=== PATIENT | female | born 1985 | race Hispanic/Latino ===

== ENCOUNTER 2018-08-19 06:33 | Inpatient (IN) | payer MEDICARE | END 2018-08-27 18:37 | disposition home or self-care (01) | LOC: EDH 06:33 → 2DH 08-20 00:02 → 3DH 08-21 20:48 → EDHIP 09:18 | DX: E11.10 Type 2 diabetes mellitus with ketoacidosis without coma (principal); E87.1 Hypo-osmolality and hyponatremia; K92.0 Hematemesis; R10.84 Generalized abdominal pain; E87.6 Hypokalemia; E86.1 Hypovolemia; F17.200 Nicotine dependence, unspecified, uncomplicated; E87.8 Other disorders of electrolyte and fluid balance, not elsewhere classified; E66.9 Obesity, unspecified; E83.39 Other disorders of phosphorus metabolism ==

== ENCOUNTER 2019-08-17 00:13 | Emergency (ER) | payer MEDICARE ==
[~2019-08-17 00:13] MED LIST: CARAL PO; FLUC100T PO; INSU3INS3 SQ; METF-446 PO; PANT40TA PO; TYL3 PO
[2019-08-17] MEDS ORDERED: SODIUM CHLORIDE 0.9% 1000ML 1,000 ML IV ONE ×2 (00:17→03:52)
[2019-08-17] MEDS ORDERED: ONDANSETRON HCL 4 MG/2 ML VIAL ONE ×2 (00:22→05:24)
[2019-08-17] MEDS ORDERED: FAMOTIDINE/PF 20 MG/2 ML VIAL IV ONE (00:33)
[2019-08-17 00:49] LABS: ABG OXYGEN SATURATION 92.1 % (95.0-99.0); HCO3,VENOUS BLOOD GAS 21.8 (21.0-28.0); PCO2,VENOUS BLOOD GAS 32 (32-45); PH,VENOUS BLOOD GAS 7.459 (7.350-7.450)
[2019-08-17] MEDS ORDERED: DiphenhydrAMINE HCL 50 MG/ML VIAL ONE ×2 (00:53→05:24)
[2019-08-17] MEDS ORDERED: METOCLOPRAMIDE 10 MG/2 ML VIAL ONE (00:53)
[2019-08-17 01:14] LABS: BASOPHILS % (AUTO) 0.3 % (0.0-5.0); HEMATOCRIT 40.5 % (36-48); LYMPHOCYTES % (AUTO) 4.1 % (21.0-51.0); MEAN CORPUSCULAR HEMOGLOBIN 27.4 pg (27.0-33.0); MEAN CORPUSCULAR HGB CONC 33.6 g/dL (32.0-36.0); MEAN CORPUSCULAR VOLUME 81.5 fL (79-99); MONOCYTES % (AUTO) 2.7 % (3.0-13.0); NEUTROPHILS % (AUTO) 92.5 % (40.0-77.0); PLATELET COUNT (AUTO) 346 K/uL (130-400); RED BLOOD CELL COUNT(AUTO) 4.97 MIL/uL (4.00-5.50); RED CELL DISTRIBUTION WIDTH 12.4 % (11.0-15.5); WHITE BLOOD COUNT (AUTO) 15.6 K/uL (4.8-10.8)
[2019-08-17 01:25] LABS: CREATININE 0.8 mg/dL (0.5-1.5); POTASSIUM 3.5 mmol/L (3.5-5.1)
[2019-08-17 01:26] LABS: MAGNESIUM 1.5 mg/dL (1.80-2.40)
[2019-08-17 01:31] LABS: INR 0.96 (0.85-1.15); PARTIAL THROMBOPLASTIN TIME 19.8 SEC (26.3-35.5); PROTHROMBIN TIME 10.1 SEC (9.6-11.6)
[2019-08-17 01:36] LABS: ALBUMIN 4.1 g/dL (3.5-5.0); BILIRUBIN,TOTAL 0.8 mg/dL (0.2-1.0); TOTAL PROTEIN, SERUM 7.6 g/dL (6.0-8.3)
[2019-08-17 03:28] LABS: BASOPHILS % (AUTO) 0.3 % (0.0-5.0); HEMATOCRIT 37.6 % (36-48); MEAN CORPUSCULAR HEMOGLOBIN 27.2 pg (27.0-33.0); MEAN CORPUSCULAR HGB CONC 32.4 g/dL (32.0-36.0); MEAN CORPUSCULAR VOLUME 83.9 fL (79-99); MONOCYTES % (AUTO) 2.1 % (3.0-13.0); NEUTROPHILS % (AUTO) 91.1 % (40.0-77.0); PLATELET COUNT (AUTO) 162 K/uL (130-400); RED BLOOD CELL COUNT(AUTO) 4.48 MIL/uL (4.00-5.50); RED CELL DISTRIBUTION WIDTH 12.6 % (11.0-15.5); WHITE BLOOD COUNT (AUTO) 14.3 K/uL (4.8-10.8)
[2019-08-17 03:30] LABS: APPEARANCE,URINE Clear (CLEAR); BILIRUBIN,URINE Negative (NEGATIVE); COLOR,URINE Yellow (YELLOW); GLUCOSE, URINE (UA) >=1000 mg/dL (NEGATIVE); KETONES,URINE >=160 mg/dL (NEGATIVE); LEUKOCYTE ESTERASE ,URINE Negative (NEGATIVE); NITRATE,URINE Negative (NEGATIVE); OCCULT BLOOD,URINE Moderate (NEGATIVE); PROTEIN,URINE Trace mg/dL (NEGATIVE); UROBILINOGEN,URINE 0.2 mg/dL (0.2-1.0)
[2019-08-17 03:36] LABS: HCG,QUAL RESULT NEGATIVE (NEGATIVE)
[2019-08-17 03:38] LABS: AMPHET/METH SCREEN,URINE NEGATIVE (NEGATIVE); BARBITURATE SCREEN, URINE NEGATIVE (NEGATIVE); BENZODIAZEPINES SCREEN,URINE NEGATIVE (NEGATIVE); CANNABINOID SCREEN,URINE POSITIVE (NEGATIVE); COCAINE SCREEN,URINE NEGATIVE (NEGATIVE); OPIATE SCREEN,URINE NEGATIVE (NEGATIVE); PHENCYCLIDINE SCREEN,URINE NEGATIVE (NEGATIVE)
[2019-08-17 04:00] LABS: BACTERIA,URINE Few /HPF (None Seen); WBC,URINE 0-1 /HPF (0-1)
[2019-08-17 04:01] LABS: SQUAMOUS EPITHELIAL CELL,UR 0-2 /HPF (0-2)
[2019-08-17] MEDS ORDERED: LEVOFLOXACIN 500 MG TABLET ONE (06:20)
[2019-08-17] MEDS ORDERED: HYOSCYAMINE SULFATE 0.125 MG TAB.SUBL SL ONE (06:21)
== END 2019-08-17 06:30 | disposition home or self-care (01) ==
LOC: EDH 00:13
DX: E86.9 Volume depletion, unspecified (principal); R10.13 Epigastric pain; R11.2 Nausea with vomiting, unspecified; R19.7 Diarrhea, unspecified; E11.9 Type 2 diabetes mellitus without complications; F12.10 Cannabis abuse, uncomplicated; Z98.51 Tubal ligation status; Z90.49 Acquired absence of other specified parts of digestive tract
CPT/HCPCS: 36415; 36600; 74176; 80053; 80305; 81001; 81025; 82010; 82550; 82803; 82948; 83605 ×2; 83690; 83735; 85025 ×2; 85610; 85730; 93005; 96361; 96374; 96375; 96376; 99285; J1200 ×2; J2405 ×2; J2765; J3490; J7030 ×2

== ENCOUNTER 2019-08-19 09:06 | Emergency (ER) | payer MEDICARE ==
[2019-08-19 09:43] LABS: BASOPHILS % (AUTO) 0.6 % (0.0-5.0); EOSINOPHILS % (AUTO) 0.6 % (0.0-8.0); HEMATOCRIT 38.6 % (36-48); LYMPHOCYTES % (AUTO) 11.3 % (21.0-51.0); MEAN CORPUSCULAR HEMOGLOBIN 27.1 pg (27.0-33.0); MEAN CORPUSCULAR HGB CONC 33.2 g/dL (32.0-36.0); MEAN CORPUSCULAR VOLUME 81.6 fL (79-99); MONOCYTES % (AUTO) 6.5 % (3.0-13.0); NEUTROPHILS % (AUTO) 80.6 % (40.0-77.0); PLATELET COUNT (AUTO) 355 K/uL (130-400); RED BLOOD CELL COUNT(AUTO) 4.73 MIL/uL (4.00-5.50); RED CELL DISTRIBUTION WIDTH 12.5 % (11.0-15.5); WHITE BLOOD COUNT (AUTO) 12.5 K/uL (4.8-10.8)
[2019-08-19 09:43] LABS: APPEARANCE,URINE Clear (CLEAR); BILIRUBIN,URINE Negative (NEGATIVE); COLOR,URINE Yellow (YELLOW); GLUCOSE, URINE (UA) >=1000 mg/dL (NEGATIVE); KETONES,URINE Trace mg/dL (NEGATIVE); LEUKOCYTE ESTERASE ,URINE Negative (NEGATIVE); NITRATE,URINE Negative (NEGATIVE); OCCULT BLOOD,URINE Large (NEGATIVE); PROTEIN,URINE Negative (NEGATIVE); UROBILINOGEN,URINE 0.2 mg/dL (0.2-1.0)
[2019-08-19 09:47] LABS: AMPHET/METH SCREEN,URINE NEGATIVE (NEGATIVE); BARBITURATE SCREEN, URINE NEGATIVE (NEGATIVE); BENZODIAZEPINES SCREEN,URINE POSITIVE (NEGATIVE); CANNABINOID SCREEN,URINE POSITIVE (NEGATIVE); COCAINE SCREEN,URINE NEGATIVE (NEGATIVE); OPIATE SCREEN,URINE NEGATIVE (NEGATIVE); PHENCYCLIDINE SCREEN,URINE NEGATIVE (NEGATIVE)
[2019-08-19 09:56] LABS: CREATININE 0.6 mg/dL (0.5-1.5); POTASSIUM 3.4 mmol/L (3.5-5.1)
[2019-08-19 09:57] LABS: BACTERIA,URINE Rare /HPF (None Seen); SQUAMOUS EPITHELIAL CELL,UR Rare /HPF (0-2); WBC,URINE 0-1 /HPF (0-1)
[2019-08-19] MEDS ORDERED: METOCLOPRAMIDE 10 MG/2 ML VIAL ONE (09:58)
[2019-08-19] MEDS ORDERED: DiphenhydrAMINE HCL 50 MG/ML VIAL ONE (09:58)
[2019-08-19] MEDS ORDERED: ONDANSETRON HCL 4 MG/2 ML VIAL ONE (09:59)
[2019-08-19] MEDS ORDERED: SODIUM CHLORIDE 0.9% 1000ML 1,000 ML IV ONE (10:00)
[2019-08-19 10:01] LABS: ALBUMIN 3.6 g/dL (3.5-5.0); BILIRUBIN,TOTAL 0.4 mg/dL (0.2-1.0); TOTAL PROTEIN, SERUM 6.7 g/dL (6.0-8.3)
== END 2019-08-19 13:09 | disposition home or self-care (01) ==
LOC: EDH 09:06
DX: K29.70 Gastritis, unspecified, without bleeding (principal); K31.84 Gastroparesis; F41.9 Anxiety disorder, unspecified; F12.188 Cannabis abuse with other cannabis-induced disorder; R10.9 Unspecified abdominal pain; E11.9 Type 2 diabetes mellitus without complications; Z98.890 Other specified postprocedural states; Z90.49 Acquired absence of other specified parts of digestive tract
CPT/HCPCS: 36415; 80053; 80305; 81001; 82150; 83690; 85025; 96361; 96374; 96375; 99284; J1200; J2405; J2765; J7030

== ENCOUNTER 2019-08-23 16:53 | Inpatient (IN) | payer MEDICARE ==
[~2019-08-23] VITALS: Ht 180.3 cm; Wt 59.9 kg
[2019-08-23] MEDS ORDERED: ONDANSETRON HCL 4 MG/2 ML VIAL ONE ×3 (17:23→22:18)
[2019-08-23] MEDS ORDERED: SODIUM CHLORIDE 0.9% 1000ML 1,000 ML IV ONE ×2 (17:23→21:26)
[2019-08-23] MEDS ORDERED: HALOPERIDOL LACTATE 5 MG/ML VIAL ONE ×2 (17:23→19:15)
[2019-08-23 17:31] LABS: BASOPHILS % (AUTO) 0.5 % (0.0-5.0); EOSINOPHILS % (AUTO) 0.5 % (0.0-8.0); HEMATOCRIT 42.4 % (36-48); LYMPHOCYTES % (AUTO) 10.2 % (21.0-51.0); MEAN CORPUSCULAR HEMOGLOBIN 26.8 pg (27.0-33.0); MEAN CORPUSCULAR HGB CONC 32.8 g/dL (32.0-36.0); MEAN CORPUSCULAR VOLUME 81.9 fL (79-99); MONOCYTES % (AUTO) 8.3 % (3.0-13.0); NEUTROPHILS % (AUTO) 80.2 % (40.0-77.0); PLATELET COUNT (AUTO) 373 K/uL (130-400); RED BLOOD CELL COUNT(AUTO) 5.18 MIL/uL (4.00-5.50); RED CELL DISTRIBUTION WIDTH 12.6 % (11.0-15.5)
[2019-08-23 17:52] LABS: CREATININE 0.6 mg/dL (0.5-1.5); POTASSIUM 3.3 mmol/L (3.5-5.1)
[2019-08-23 17:56] LABS: ALBUMIN 3.8 g/dL (3.5-5.0); BILIRUBIN,DIRECT 0.2 mg/dL (0.0-0.3); BILIRUBIN,TOTAL 1.3 mg/dL (0.2-1.0); TOTAL PROTEIN, SERUM 7.3 g/dL (6.0-8.3)
[2019-08-23] MEDS ORDERED: METOCLOPRAMIDE 10 MG/2 ML VIAL ONE ×2 (18:00→22:18)
[2019-08-23 21:24] LABS: APPEARANCE,URINE CLOUDY (CLEAR); BILIRUBIN,URINE NEGATIVE (NEGATIVE); COLOR,URINE RED (YELLOW); GLUCOSE, URINE (UA) 500 mg/dL (NEGATIVE); HCG,QUAL RESULT NEGATIVE (NEGATIVE); KETONES,URINE >=80 mg/dL (NEGATIVE); LEUKOCYTE ESTERASE ,URINE NEGATIVE (NEGATIVE); NITRATE,URINE NEGATIVE (NEGATIVE); OCCULT BLOOD,URINE LARGE (NEGATIVE); PROTEIN,URINE 100 mg/dL (NEGATIVE); UROBILINOGEN,URINE 0.2 mg/dL (0.2-1.0)
[2019-08-23] MEDS ORDERED: KETOROLAC TROMETHAMINE 30MG/ML ONE (21:24)
[2019-08-23 21:30] LABS: AMPHET/METH SCREEN,URINE POSITIVE (NEGATIVE); BARBITURATE SCREEN, URINE NEGATIVE (NEGATIVE); BENZODIAZEPINES SCREEN,URINE POSITIVE (NEGATIVE); CANNABINOID SCREEN,URINE POSITIVE (NEGATIVE); COCAINE SCREEN,URINE POSITIVE (NEGATIVE); OPIATE SCREEN,URINE NEGATIVE (NEGATIVE); PHENCYCLIDINE SCREEN,URINE NEGATIVE (NEGATIVE)
[2019-08-23 21:39] LABS: BACTERIA,URINE Moderate /HPF (None Seen); MUCUS,URINE Few LPF (None Seen); RBC,URINE 26-50 /HPF (0-1); SQUAMOUS EPITHELIAL CELL,UR Few /HPF (0-2)
[2019-08-23] MEDS ORDERED: LIDOCAINE HCL-MPF 1% 2ML VIAL IJ PRN ×2 (21:45→22:45)
[2019-08-23] MEDS ORDERED: POTASSIUM CHLORIDE 20MEQ/100ML 100 ML IV PRN ×2 (21:45→22:45)
[2019-08-23] MEDS ORDERED: GLUCAGON 1MG KIT 1 MG ML IM PRN (21:45)
[2019-08-23] MEDS ORDERED: MAGNESIUM 2GM PREMIX 50ML 50 ML IV PRN (21:45)
[2019-08-23] MEDS: INSULIN HUMULIN R 100 UNIT/ML 3ML SQ SCH (21:45)
[2019-08-23] MEDS ORDERED: POTASSIUM CHLORIDE 10% ELIXIR 20 MEQ/15 ML UDCUP PO PRN (21:45)
[2019-08-23] MEDS: SODIUM CHLORIDE 0.9% 1000ML 1,000 ML IV SCH (21:45)
[2019-08-23] MEDS ORDERED: DEXTROSE 50%-WATER 50 ML DISP.SYRIN IV PRN (21:45)
[2019-08-23] MEDS ORDERED: POTASSIUM CHLORIDE 20 MEQ ERTAB PO PRN (21:45)
[2019-08-23 22:13] LABS: HEMOGLOBIN A1C 10.7 % (4.0-6.0)
[2019-08-23] MEDS ORDERED: METOCLOPRAMIDE 10 MG/2 ML VIAL IVP SCH (22:15)
[2019-08-23] MEDS ORDERED: NITROGLYCERIN 0.4 MG SL TAB SL PRN (22:15)
[2019-08-23] MEDS ORDERED: ACETAMINOPHEN 325 MG TAB PO PRN ×2 (22:15)
[2019-08-23] MEDS: DiphenhydrAMINE HCL 50 MG/ML VIAL IV SCH (22:15)
[2019-08-23] MEDS ORDERED: DiphenhydrAMINE HCL 50 MG/ML VIAL ONE (22:18)
[2019-08-23] MEDS ORDERED: SODIUM CHLORIDE 0.9% 50 ML IV ONE (22:19)
[2019-08-23] MEDS ORDERED: MAGNESIUM 2GM PREMIX 50ML 50 ML IV SCH (22:45)
[2019-08-23 22:51] LABS: MYOGLOBIN 83 ng/mL (10-92); TROPONIN I < 0.04 ng/mL (0.00-0.06)
[2019-08-23] MEDS ORDERED: MAGNESIUM 2GM PREMIX 50ML 50 ML IV ONE (22:58)
[2019-08-24] MEDS: SODIUM CHLORIDE 0.9% 1000ML 1,000 ML IV SCH ×3 (04:25→14:48)
[2019-08-24] MEDS ORDERED: SODIUM CHLORIDE 0.9% 1000ML 1,000 ML IV ONE (04:33)
[2019-08-24] MEDS ORDERED: HALOPERIDOL LACTATE 5 MG/ML VIAL ONE (04:36)
[2019-08-24] MEDS ORDERED: ONDANSETRON HCL 4 MG/2 ML VIAL ONE (04:36)
[2019-08-24] MEDS ORDERED: HALOPERIDOL LACTATE 5 MG/ML VIAL IV ONE (04:45)
[2019-08-24] MEDS ORDERED: KETOROLAC TROMETHAMINE 15MG/ML IV PRN (04:45)
[2019-08-24] MEDS: INSULIN HUMULIN R 100 UNIT/ML 3ML SQ SCH ×4 (07:30→21:45)
[2019-08-24 08:00] VITALS: BP 95/65
[2019-08-24] MEDS ORDERED: FAMOTIDINE/PF 20 MG/2 ML VIAL IV SCH (09:00)
[2019-08-24] MEDS ORDERED: FAMOTIDINE 20MG TAB 20 MG TAB PO SCH (09:00)
[2019-08-24 09:37] LABS: BASOPHILS % (AUTO) 0.2 % (0.0-5.0); HEMATOCRIT 39.9 % (36-48); LYMPHOCYTES % (AUTO) 10.7 % (21.0-51.0); MEAN CORPUSCULAR HEMOGLOBIN 27.3 pg (27.0-33.0); MEAN CORPUSCULAR HGB CONC 33.3 g/dL (32.0-36.0); MEAN CORPUSCULAR VOLUME 81.8 fL (79-99); MONOCYTES % (AUTO) 7.9 % (3.0-13.0); PLATELET COUNT (AUTO) 335 K/uL (130-400); RED BLOOD CELL COUNT(AUTO) 4.88 MIL/uL (4.00-5.50); RED CELL DISTRIBUTION WIDTH 12.7 % (11.0-15.5); WHITE BLOOD COUNT (AUTO) 9.2 K/uL (4.8-10.8)
[2019-08-24 09:50] LABS: ALBUMIN 3.4 g/dL (3.5-5.0); BILIRUBIN,TOTAL 0.7 mg/dL (0.2-1.0); CREATININE 0.6 mg/dL (0.5-1.5); MAGNESIUM 1.8 mg/dL (1.80-2.40); POTASSIUM 3.3 mmol/L (3.5-5.1); TOTAL PROTEIN, SERUM 6.6 g/dL (6.0-8.3)
--- NOTE | 2019-08-24 10:00 | NUR ---
DR MOHR IN TO SEE Patient orders for endocrinology, ordered place for dr melendrez
[2019-08-24] MEDS: ENOXAPARIN SODIUM 30 MG/0.3 ML SQ SCH (10:27)
[2019-08-24 12:00] VITALS: BP 110/76
--- NOTE | 2019-08-24 12:05 | NUR ---
new consult for endocrinology , DR MONROE NOTIFIED RETURN CALL AND ORDERS RECEIVED FOR BLOOD SUGAR EVERY 4 HOURS, LANTUS 15 UNITS NOW . HE WILL BE IN TO SEE PATIENT TODAY KEEP NPO FOR NOW
[2019-08-24] MEDS ORDERED: INSULIN GLARGINE 100 UNITS/ML 10 ML VIAL SQ ONE (12:15)
[2019-08-24] MEDS: NS-20 MEQ KCL 1000ML 1,000 ML IV SCH (14:45)
[2019-08-24 16:00] VITALS: BP 123/71
[2019-08-24] MEDS: METOCLOPRAMIDE 5 MG TABLET PO SCH (17:28)
--- NOTE | 2019-08-24 17:33 | NUR ---
INITIAL Patient reports that she is homeless and has been staying at [facility], [facility]. Emergency contact is mother, Geneva Del Toro [phone]. Patient has no home services or DME. 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 No PCP and no pharmacy of choice. Patient is independent and able to complete ADL's independently. DCP is back to [facility]. Patient informed SW that she used to live with her 3 yr old son and 5 yr old daughter but Child Protective Services removed children from her custody on 08/19/2019. Patient reports that her daughter is with her mother and her son has been placed with her cousin. CPS Perinatal Social Worker is Monica Hernandez, [phone]. SW attempted to contact Ms. Hernandez but was only able to leave a message. SW will continue to follow up with patient. Addendum: 08/24/19 at 1740 by ALVERTO WALLER SS Amended: Links added.
[2019-08-24 20:00] VITALS: BP 117/83
[2019-08-24 20:21] LABS: CREATININE 0.7 mg/dL (0.5-1.5); POTASSIUM 3.3 mmol/L (3.5-5.1)
[2019-08-24] MEDS ORDERED: POTASSIUM CHLORIDE 20 MEQ ERTAB PO PRN (21:30)
[2019-08-24] MEDS ORDERED: POTASSIUM CHLORIDE 20MEQ/100ML 100 ML IV PRN (21:30)
[2019-08-24] MEDS ORDERED: ALPRAZOLAM 1 MG TAB ONE (21:32)
[2019-08-24] MEDS: INSULIN GLARGINE 100 UNITS/ML 10 ML VIAL SQ SCH (21:58)
[2019-08-24] MEDS: DiphenhydrAMINE HCL 50 MG/ML VIAL IV SCH (22:15)
[2019-08-24] MEDS ORDERED: KETOROLAC TROMETHAMINE 15MG/ML IM PRN (22:45)
[2019-08-24] MEDS ORDERED: KETOROLAC TROMETHAMINE 30MG/ML ONE (22:50)
[2019-08-25] VITALS: BP 104/73
[2019-08-25] MEDS ORDERED: ALPRAZOLAM 1 MG TAB PO ONE
[2019-08-25] MEDS: SODIUM CHLORIDE 0.9% 1000ML 1,000 ML IV SCH (00:25)
[2019-08-25] MEDS: NS-20 MEQ KCL 1000ML 1,000 ML IV SCH ×3 (00:26→22:00)
[2019-08-25 04:00] VITALS: BP 96/69
[2019-08-25] MEDS: INSULIN HUMULIN R 100 UNIT/ML 3ML SQ SCH ×4 (06:55→21:00)
[2019-08-25 07:05] LABS: BASOPHILS % (AUTO) 0.8 % (0.0-5.0); EOSINOPHILS % (AUTO) 1.8 % (0.0-8.0); HEMATOCRIT 40.2 % (36-48); LYMPHOCYTES % (AUTO) 33.7 % (21.0-51.0); MEAN CORPUSCULAR HEMOGLOBIN 27.3 pg (27.0-33.0); MEAN CORPUSCULAR HGB CONC 32.3 g/dL (32.0-36.0); MEAN CORPUSCULAR VOLUME 84.5 fL (79-99); MONOCYTES % (AUTO) 13.5 % (3.0-13.0); NEUTROPHILS % (AUTO) 49.9 % (40.0-77.0); PLATELET COUNT (AUTO) 329 K/uL (130-400); RED BLOOD CELL COUNT(AUTO) 4.76 MIL/uL (4.00-5.50); RED CELL DISTRIBUTION WIDTH 13.1 % (11.0-15.5); WHITE BLOOD COUNT (AUTO) 6.5 K/uL (4.8-10.8)
[2019-08-25 07:14] LABS: CREATININE 0.8 mg/dL (0.5-1.5); MAGNESIUM 2.3 mg/dL (1.80-2.40)
[2019-08-25 07:19] LABS: POTASSIUM 2.9 mmol/L (3.5-5.1)
[2019-08-25] MEDS ORDERED: POTASSIUM CHLORIDE 20 MEQ ERTAB PO SCH (08:00)
[2019-08-25] MEDS: METOCLOPRAMIDE 5 MG TABLET PO SCH ×3 (08:08→17:13)
[2019-08-25 08:37] VITALS: BP 126/83
[2019-08-25] MEDS: ALPRAZOLAM 1 MG TAB PO SCH ×3 (10:05→23:05)
[2019-08-25] MEDS: ENOXAPARIN SODIUM 30 MG/0.3 ML SQ SCH (10:06)
[2019-08-25] MEDS: POTASSIUM CHLORIDE 10% ELIXIR 20 MEQ/15 ML UDCUP PO PRN ×2 (10:07→13:45)
[2019-08-25] MEDS: KETOROLAC TROMETHAMINE 15MG/ML IV PRN ×3 (10:19→23:14)
[2019-08-25 12:20] VITALS: BP 135/93
[2019-08-25] MEDS: PANTOPRAZOLE SODIUM 40 MG TABLET.DR PO SCH (13:44)
[2019-08-25 16:42] LABS: CREATININE 0.7 mg/dL (0.5-1.5); MAGNESIUM 1.9 mg/dL (1.80-2.40); POTASSIUM 4.2 mmol/L (3.5-5.1)
[2019-08-25 16:55] VITALS: BP 116/79
--- NOTE | 2019-08-25 17:19 | NUR ---
Polysubstance abuse & CPS Follow Up SW met with patient and discussed results of drug screen. Patient admits that she used "every drug I could find". She states that she was upset when Child Protective Services removed her children from her custody. Patient states that she just wanted to "numb the pain". Patient also admits to wanting to end her life. She informed SW that she tried to slice her wrists because she did not know how she would live without her two small children ages 3 & 5. Patient states that she voluntarily admitted herself to [facility] but was sent to hospital due to medical issues. Patient denies suicidal/homicidal ideations at this time. She is tearful and states she feels lost without her children and reports that her mother will not let her see them. SW attempted to provide patient with community resources for substance abuse but patient refused. Patient stated that she was planning to return back to [facility] once she was medically cleared from hospital. Patient spoke to [facility] forestry fire aid, Monica Hernandez, regarding her case. Patient informed SW that CPS Crew Chief told her that process for her to regain custody of her children would start in about 3 months. Patient became tearful but stated that she wanted to do what she had to in order to regain custody of her children but complained that time frame was "too long". SW encouraged patient to continue to seek treatment and follow [facility] instructions in effort to regain custody of her children sooner rather than later. Patient agreed.
[2019-08-25 20:00] VITALS: BP 134/94
[2019-08-25] MEDS: DiphenhydrAMINE HCL 50 MG/ML VIAL IV SCH (22:15)
[2019-08-25] MEDS ORDERED: MAG HYDROX/AL HYDROX/SIMETH ES 30 ML SUSP UDCUP ONE (23:02)
[2019-08-25] MEDS: ARIPIPRAZOLE 5 MG TABLET PO SCH (23:04)
[2019-08-25] MEDS: INSULIN GLARGINE 100 UNITS/ML 10 ML VIAL SQ SCH (23:08)
[2019-08-26] VITALS (14 sets, daily range): BP systolic 81–131; BP diastolic 74–89
[2019-08-26] MEDS: KETOROLAC TROMETHAMINE 15MG/ML IV PRN ×2 (05:40→18:02)
[2019-08-26 05:41] LABS: BASOPHILS % (AUTO) 0.7 % (0.0-5.0); EOSINOPHILS % (AUTO) 1.6 % (0.0-8.0); HEMATOCRIT 34.2 % (36-48); LYMPHOCYTES % (AUTO) 32.3 % (21.0-51.0); MEAN CORPUSCULAR HEMOGLOBIN 27.2 pg (27.0-33.0); MEAN CORPUSCULAR VOLUME 82.4 fL (79-99); MONOCYTES % (AUTO) 9.8 % (3.0-13.0); NEUTROPHILS % (AUTO) 55.3 % (40.0-77.0); PLATELET COUNT (AUTO) 285 K/uL (130-400); RED BLOOD CELL COUNT(AUTO) 4.15 MIL/uL (4.00-5.50); WHITE BLOOD COUNT (AUTO) 5.7 K/uL (4.8-10.8)
[2019-08-26 05:51] LABS: CREATININE 0.5 mg/dL (0.5-1.5); POTASSIUM 3.7 mmol/L (3.5-5.1)
[2019-08-26 06:02] LABS: INR 0.96 (0.85-1.15); PROTHROMBIN TIME 10.1 SEC (9.6-11.6)
[2019-08-26] MEDS: METOCLOPRAMIDE 5 MG TABLET PO SCH ×3 (07:30→16:20)
[2019-08-26] MEDS: INSULIN HUMULIN R 100 UNIT/ML 3ML SQ SCH ×4 (07:30→21:56)
[2019-08-26] MEDS: PANTOPRAZOLE SODIUM 40 MG TABLET.DR PO SCH ×3 (09:00→21:54)
[2019-08-26] MEDS: ALPRAZOLAM 1 MG TAB PO SCH ×3 (09:00→21:54)
[2019-08-26] MEDS: ENOXAPARIN SODIUM 30 MG/0.3 ML SQ SCH (09:00)
[2019-08-26] MEDS: ONDANSETRON HCL 4 MG/2 ML VIAL IVP PRN (09:45)
[2019-08-26] MEDS ORDERED: ERYTHROMYCIN LACTOBIONATE 250 MG in SODIUM CHLORIDE 0.9% 100 ML IV SCH (10:00)
[2019-08-26] MEDS ORDERED: MORPHINE SULFATE 2 MG/ML 1ML SYG IVP ONE ×2 (10:00→11:15)
[2019-08-26] MEDS: NS-20 MEQ KCL 1000ML 1,000 ML IV SCH (11:38)
[2019-08-26] MEDS ORDERED: PROPOFOL 10 MG/ML 20ML VIAL IV ONE (13:34)
[2019-08-26] MEDS ORDERED: MORPHINE SULFATE 4 MG/1ML SYG ONE (14:13)
--- NOTE | 2019-08-26 14:16 | NUR ---
RD NOTIFICATION POSSIBLE GASTROPARESIS. POSITIVE FOR POLYSUBSTANCE ABUSE. PT STATED EATING <50% FOR THE PAST WEEK DUE TO DEPRESSION. BMI IS 18.4, CLASSIFIED UNDERWEIGHT. LABS REVIEWED. MEDS REVIEWED. SKIN INTACT. DIET: NPO. PT SAID SHE IS VERY HUNGRY AT TIME OF VISIT AND IS IMPATIENTLY WAITING TO HAVE A PROCEDURE DONE TODAY. SHE STATED UNABLE TO PASS BM. RD RECOMMENDS TO ADVANCE DIET TOLERATED WHEN MEDICALLY FEASIBLE PENDING GI RECOMMENDATIONS RD WILL CONTINUE TO MONITOR AND FOLLOW UP Addendum: 08/26/19 at [address] Amended: Links added.
--- NOTE | 2019-08-26 17:01 | NUR ---
IRONP SW met with patient to discuss discharge disposition. Patient stated that she did not want to return to [facility] because she feels that she doesn't need it anymore. Patient informed SW that she has reached out to a friend to see if she could go stay with her for a while. Patient's friend has not responded yet. Patient stated that if she is not able to stay with her friend then she will go to [facility]. Patient also stated that her friend is suppose to bring patient's car to hospital parking lot. Eva CAMARILLO, made aware.
[2019-08-26] MEDS: MORPHINE SULFATE 2 MG/ML 1ML SYG IVP PRN (18:50)
[2019-08-26] MEDS: ARIPIPRAZOLE 5 MG TABLET PO SCH (21:54)
[2019-08-26] MEDS: INSULIN GLARGINE 100 UNITS/ML 10 ML VIAL SQ SCH (21:57)
[2019-08-26] MEDS: DiphenhydrAMINE HCL 50 MG/ML VIAL IV SCH (22:15)
[2019-08-27] VITALS: BP 163/106
[2019-08-27] MEDS: NS-20 MEQ KCL 1000ML 1,000 ML IV SCH ×3 (00:51→20:37)
[2019-08-27] MEDS: MORPHINE SULFATE 2 MG/ML 1ML SYG IVP PRN ×4 (00:52→18:00)
[2019-08-27 04:20] VITALS: BP 102/64
[2019-08-27 07:17] LABS: BASOPHILS % (AUTO) 0.6 % (0.0-5.0); EOSINOPHILS % (AUTO) 1.6 % (0.0-8.0); HEMATOCRIT 34.9 % (36-48); LYMPHOCYTES % (AUTO) 35.4 % (21.0-51.0); MEAN CORPUSCULAR HGB CONC 31.8 g/dL (32.0-36.0); MEAN CORPUSCULAR VOLUME 84.9 fL (79-99); PLATELET COUNT (AUTO) 269 K/uL (130-400); RED BLOOD CELL COUNT(AUTO) 4.11 MIL/uL (4.00-5.50); RED CELL DISTRIBUTION WIDTH 13.3 % (11.0-15.5); WHITE BLOOD COUNT (AUTO) 5.1 K/uL (4.8-10.8)
[2019-08-27 07:30] LABS: CREATININE 0.6 mg/dL (0.5-1.5); POTASSIUM 4.2 mmol/L (3.5-5.1)
[2019-08-27] MEDS: INSULIN HUMULIN R 100 UNIT/ML 3ML SQ SCH ×4 (07:30→20:52)
[2019-08-27 08:00] VITALS: BP 118/81
[2019-08-27] MEDS: ENOXAPARIN SODIUM 30 MG/0.3 ML SQ SCH (09:21)
[2019-08-27] MEDS: METOCLOPRAMIDE 5 MG TABLET PO SCH ×3 (09:21→17:28)
[2019-08-27] MEDS: ALPRAZOLAM 1 MG TAB PO SCH ×3 (09:21→20:37)
[2019-08-27] MEDS: PANTOPRAZOLE SODIUM 40 MG TABLET.DR PO SCH ×2 (09:22→20:37)
[2019-08-27 12:00] VITALS: BP 135/90
--- NOTE | 2019-08-27 12:55 | NUR ---
PATIENT SHOWER PATIENT REQUESTED TO TAKE A SHOWER TO HELP EASE PAIN. PATIENT LEFT SHOWER RUNNING CAUSING WATER TO POOL IN PATIENT ROOM AND INTO HALLWAY. BLANKETS WERE USED TO CONTAIN WATER UNTIL HOUSEKEEPING ARRIVED TO ADDRESS ISSUE. HOUSEKEEPING NOTIFIED AND ARRIVED WITH VACUUM FOR WATER.
[2019-08-27] MEDS ORDERED: MORPHINE SULFATE 2 MG/ML 1ML SYG IVP ONE (13:00)
[2019-08-27 16:00] VITALS: BP 128/88
[2019-08-27] MEDS: SUCRALFATE 1 GM/10 ML PO SCH ×2 (17:28→20:37)
[2019-08-27 20:00] VITALS: BP 154/96
[2019-08-27] MEDS: ARIPIPRAZOLE 5 MG TABLET PO SCH (20:37)
[2019-08-27] MEDS: INSULIN GLARGINE 100 UNITS/ML 10 ML VIAL SQ SCH (20:41)
[2019-08-27] MEDS: DiphenhydrAMINE HCL 50 MG/ML VIAL IV SCH (22:15)
[2019-08-28] MEDS: MORPHINE SULFATE 2 MG/ML 1ML SYG IVP PRN ×4 (00:18→20:07)
[2019-08-28 04:00] VITALS: BP 118/79
[2019-08-28 06:19] LABS: CREATININE 0.7 mg/dL (0.5-1.5); MAGNESIUM 1.6 mg/dL (1.80-2.40); POTASSIUM 4.3 mmol/L (3.5-5.1)
[2019-08-28] MEDS: SUCRALFATE 1 GM/10 ML PO SCH ×4 (06:29→20:06)
[2019-08-28] MEDS: INSULIN HUMULIN R 100 UNIT/ML 3ML SQ SCH ×4 (06:41→20:57)
[2019-08-28 08:00] VITALS: BP 136/77
[2019-08-28] MEDS: PANTOPRAZOLE SODIUM 40 MG TABLET.DR PO SCH ×2 (10:01→20:07)
[2019-08-28] MEDS: METOCLOPRAMIDE 5 MG TABLET PO SCH ×3 (10:01→16:59)
[2019-08-28] MEDS: ALPRAZOLAM 1 MG TAB PO SCH ×3 (10:01→20:07)
[2019-08-28] MEDS: ENOXAPARIN SODIUM 30 MG/0.3 ML SQ SCH (10:02)
[2019-08-28 11:16] VITALS: BP 139/92
--- NOTE | 2019-08-28 13:26 | NUR ---
RD FOLLOW UP S/P UPPER EGD. FINDINGS SUGGEST SEVERE ESOPHAGITIS WITH NON BLEEDING ULCER, SEVERE GASTRITIS WITH NON BLEEDING ULCER, ACUTE DUODENITIS. WILL CHECK FOR H. PYLORI, PENDING RESULTS. LABS REVIEWED (A1C 10.7). MEDS REVIEWED. SKIN IS INTACT. PT IS IN SEVERE PAIN AT TIME OF VISIT - UNABLE TO PROVIDE NUTRITION EDUCATION AT THIS TIME. PT STATES FEELING WORSENING PAIN AFTER EACH PO INTAKE BUT SAYS SHE IS STILL HUNGRY. RD RECOMMENDS TO ADD 6 SMALL MEALS, 75GMCCD, AND GLUCERNA TID TO DIET ORDER RD PENDING NUTRITION EDUCATION AT THIS TIME RD WILL CONTINUE TO MONITOR AND FOLLOW UP Addendum: 08/28/19 at [address] Amended: Links added.
[2019-08-28] MEDS ORDERED: DIATR MEGLU/DIATRIZOATE SODIUM 30 ML BOTTLE ONE (15:14)
[2019-08-28 16:00] VITALS: BP 136/99
[2019-08-28] MEDS: ACETAMINOPHEN-CODEINE 300/30MG TAB PO PRN (17:17)
[2019-08-28] MEDS: NS-20 MEQ KCL 1000ML 1,000 ML IV SCH (17:59)
[2019-08-28] MEDS: ONDANSETRON HCL 4 MG/2 ML VIAL IVP PRN (18:33)
[2019-08-28 19:20] VITALS: BP 125/89
[2019-08-28] MEDS: DiphenhydrAMINE HCL 50 MG/ML VIAL IV SCH (19:42)
[2019-08-28] MEDS: ARIPIPRAZOLE 5 MG TABLET PO SCH (20:07)
[2019-08-28] MEDS: INSULIN GLARGINE 100 UNITS/ML 10 ML VIAL SQ SCH (20:58)
[2019-08-29] VITALS: BP 125/77
[2019-08-29] MEDS: MORPHINE SULFATE 2 MG/ML 1ML SYG IVP PRN ×5 (00:02→20:30)
[2019-08-29] MEDS: SUCRALFATE 1 GM/10 ML PO SCH ×4 (01:34→20:31)
[2019-08-29] MEDS: NS-20 MEQ KCL 1000ML 1,000 ML IV SCH ×2 (03:59→20:29)
[2019-08-29 04:00] VITALS: BP 114/64
--- NOTE | 2019-08-29 04:00 | NUR ---
PT WAS GIVEN MORPHINE 2 MG IV Q4HRS PRN AT THIS TIME. PT WAS MAD AND SCREAMED " IT DIDN'T HIT ME!" SHE THEN ASKED THE HEAD OF PARTNER DEVELOPMENT IN AN ANGRY MANNER "WHAT TYPE OF MEDICATION WAS THAT!" PT WAS TOLD BEFOREHAND THAT THE ONLY PAIN MEDICATION SHE HAS ARE MORPHINE 2MG IV AND TYLENOL#3. NO APPARENT DISTRESS NOTED. VS ARE FOLLOWS BEFORE PAIN MED WAS GIVEN: BP - 114/64 ; HR: 75 ; RR: 16 ; TEMP: 97.9 ORAL ; O2SAT AT 94%,RA.
[2019-08-29] MEDS: METOCLOPRAMIDE 5 MG TABLET PO SCH ×3 (06:04→16:17)
[2019-08-29] MEDS: INSULIN HUMULIN R 100 UNIT/ML 3ML SQ SCH ×7 (06:16→20:28)
[2019-08-29 08:00] VITALS: BP 132/84
[2019-08-29] MEDS: PANTOPRAZOLE SODIUM 40 MG TABLET.DR PO SCH ×2 (09:21→20:29)
[2019-08-29] MEDS: ALPRAZOLAM 1 MG TAB PO SCH ×3 (09:21→20:29)
[2019-08-29] MEDS: ENOXAPARIN SODIUM 30 MG/0.3 ML SQ SCH (09:25)
[2019-08-29 11:52] VITALS: BP 90/47
[2019-08-29 16:02] VITALS: BP 128/86
[2019-08-29 19:39] VITALS: BP 131/76
[2019-08-29] MEDS: INSULIN GLARGINE 100 UNITS/ML 10 ML VIAL SQ SCH (20:28)
[2019-08-29] MEDS: ARIPIPRAZOLE 5 MG TABLET PO SCH (20:29)
[2019-08-29] MEDS: ONDANSETRON HCL 4 MG/2 ML VIAL IVP PRN (21:32)
[2019-08-29] MEDS: ACETAMINOPHEN-CODEINE 300/30MG TAB PO PRN (21:33)
[2019-08-29] MEDS: DiphenhydrAMINE HCL 50 MG/ML VIAL IV SCH (22:15)
[2019-08-30] VITALS (7 sets, daily range): BP systolic 98–126; BP diastolic 62–82
[2019-08-30] MEDS: NS-20 MEQ KCL 1000ML 1,000 ML IV SCH ×3 (00:15→20:15)
[2019-08-30] MEDS: SUCRALFATE 1 GM/10 ML PO SCH ×4 (02:50→20:47)
[2019-08-30] MEDS: MORPHINE SULFATE 2 MG/ML 1ML SYG IVP PRN ×5 (03:06→22:26)
[2019-08-30] MEDS: INSULIN HUMULIN R 100 UNIT/ML 3ML SQ SCH ×7 (06:15→21:17)
[2019-08-30] MEDS: ACETAMINOPHEN-CODEINE 300/30MG TAB PO PRN ×2 (06:16→23:55)
[2019-08-30] MEDS: METOCLOPRAMIDE 5 MG TABLET PO SCH ×3 (06:17→17:35)
[2019-08-30] MEDS: ALPRAZOLAM 1 MG TAB PO SCH ×3 (08:26→20:47)
[2019-08-30] MEDS: PANTOPRAZOLE SODIUM 40 MG TABLET.DR PO SCH ×2 (08:26→20:47)
[2019-08-30] MEDS: ENOXAPARIN SODIUM 30 MG/0.3 ML SQ SCH (08:27)
[2019-08-30] MEDS: ARIPIPRAZOLE 5 MG TABLET PO SCH (20:47)
[2019-08-30] MEDS ORDERED: INSULIN GLARGINE 100 UNITS/ML 10 ML VIAL SQ SCH (21:00)
[2019-08-30] MEDS: DiphenhydrAMINE HCL 50 MG/ML VIAL IV SCH (22:15)
[2019-08-31] MEDS: SUCRALFATE 1 GM/10 ML PO SCH ×3 (02:50→13:59)
[2019-08-31 03:10] VITALS: BP 121/72
[2019-08-31] MEDS: MORPHINE SULFATE 2 MG/ML 1ML SYG IVP PRN ×2 (04:11→12:12)
[2019-08-31 05:33] LABS: BASOPHILS % (AUTO) 0.9 % (0.0-5.0); EOSINOPHILS % (AUTO) 2.9 % (0.0-8.0); HEMATOCRIT 39.4 % (36-48); LYMPHOCYTES % (AUTO) 32.9 % (21.0-51.0); MEAN CORPUSCULAR HEMOGLOBIN 26.9 pg (27.0-33.0); MEAN CORPUSCULAR VOLUME 84.2 fL (79-99); MONOCYTES % (AUTO) 11.5 % (3.0-13.0); NEUTROPHILS % (AUTO) 51.3 % (40.0-77.0); PLATELET COUNT (AUTO) 361 K/uL (130-400); RED BLOOD CELL COUNT(AUTO) 4.68 MIL/uL (4.00-5.50); RED CELL DISTRIBUTION WIDTH 13.2 % (11.0-15.5); WHITE BLOOD COUNT (AUTO) 5.6 K/uL (4.8-10.8)
[2019-08-31 05:58] LABS: ALBUMIN 2.9 g/dL (3.5-5.0); BILIRUBIN,TOTAL 0.1 mg/dL (0.2-1.0); CREATININE 0.7 mg/dL (0.5-1.5); POTASSIUM 4.4 mmol/L (3.5-5.1); TOTAL PROTEIN, SERUM 6.2 g/dL (6.0-8.3)
[2019-08-31] MEDS: INSULIN HUMULIN R 100 UNIT/ML 3ML SQ SCH ×4 (06:30→12:20)
[2019-08-31] MEDS: ACETAMINOPHEN-CODEINE 300/30MG TAB PO PRN (06:33)
[2019-08-31] MEDS: METOCLOPRAMIDE 5 MG TABLET PO SCH ×2 (06:34→12:11)
[2019-08-31 08:00] VITALS: BP 109/74
[2019-08-31] MEDS: ALPRAZOLAM 1 MG TAB PO SCH ×2 (10:18→13:59)
[2019-08-31] MEDS: PANTOPRAZOLE SODIUM 40 MG TABLET.DR PO SCH (10:18)
[2019-08-31] MEDS: ENOXAPARIN SODIUM 30 MG/0.3 ML SQ SCH (10:19)
[2019-08-31 12:00] VITALS: BP 143/73
--- NOTE | 2019-08-31 15:52 | NUR ---
RD Follow up Pt with good PO intake, however elevated BG levels, DKA resolved as per EMR. Pt with non-compliance and requesting unavailable foods or restricted food pertaining to diet order. Pt agrees to one SF popsicle. Pending Diabetes nutrition education, and Psych evaluation as per EMR. Please notify RD as additional nutrition concerns arise. Thank you. Addendum: 08/31/19 at [address] Amended: Links added.
--- NOTE | 2019-08-31 17:07 | NUR ---
CM NOTE MEET WITH PATIENT TODAY IN ROOM. QUESTIONS REGARDING FMLA, INFORMED PATIENT THAT IT WOULD HAVE TO BE DONE WITH PRIMARY CARE PHYSICIAN. PER PATIENT, DOES NOT HAVE ONE. LIST OF LOCAL PRIMARY CARE PHYSICIANS GIVEN TO PATIENT TO FIND AFTER HOSPITAL DISCHARGE. PER PATIENT, WAS SEEN AT [facility] LAST YEAR, ENCOURAGED TO CALL AND MAKE APPOINTMENT. LATER ON, PATIENT CALLED AND MADE APPOINTMENT FOR 09/02/19. REQUESTING FOR DC ON 09/02/19 IN AM. INFORMED PRIMARY NURSE, ESTELLA MOREJON, AND DR. LUGO OF DISCUSSIONS WITH PATIENT.
--- NOTE | 2019-08-31 17:43 | NUR ---
AMA PATIENT REQUEST TO LEAVE AMA. AMA FORM WAS FILLED OUT AND PATIENT SIGNED. IV DISCONTINUED, CATHLON INTACT, BLEEDING CONTROLLED, PATIENT TOLERATED WITHOUT INCIDENT. PATIENT
== END 2019-08-31 18:30 | disposition left against medical advice (07) | DRG 917 ==
LOC: EDH 16:53 → EDHIP 21:31 → 3AH 08-24 08:31
PROVIDERS: ADMIT Internal Medicine; ATTEND Internal Medicine
PROC: 0DB58ZX Excision of Esophagus, Via Natural or Artificial Opening Endoscopic, Diagnostic (ICD-10-PCS; principal; 2019-08-26)
PROC: 0DB68ZX Excision of Stomach, Via Natural or Artificial Opening Endoscopic, Diagnostic (ICD-10-PCS; 2019-08-26)
DX: T50.911A Poisoning by multiple unspecified drugs, medicaments and biological substances, accidental (unintentional), initial encounter (principal); E11.10 Type 2 diabetes mellitus with ketoacidosis without coma; G92 Toxic encephalopathy; K22.10 Ulcer of esophagus without bleeding; E87.1 Hypo-osmolality and hyponatremia; E44.0 Moderate protein-calorie malnutrition; Z68.1 Body mass index [BMI] 19.9 or less, adult; K29.70 Gastritis, unspecified, without bleeding; E11.65 Type 2 diabetes mellitus with hyperglycemia; K31.84 Gastroparesis; E11.43 Type 2 diabetes mellitus with diabetic autonomic (poly)neuropathy; E83.42 Hypomagnesemia; E87.6 Hypokalemia; E86.0 Dehydration; F12.10 Cannabis abuse, uncomplicated; F14.10 Cocaine abuse, uncomplicated; K29.80 Duodenitis without bleeding; F31.9 Bipolar disorder, unspecified; F43.10 Post-traumatic stress disorder, unspecified; K59.00 Constipation, unspecified; K21.0 Gastro-esophageal reflux disease with esophagitis; K29.00 Acute gastritis without bleeding; K26.9 Duodenal ulcer, unspecified as acute or chronic, without hemorrhage or perforation; Z79.4 Long term (current) use of insulin; Z91.19 Patient's noncompliance with other medical treatment and regimen; Z91.14 Patient's other noncompliance with medication regimen; Z87.11 Personal history of peptic ulcer disease; Z83.3 Family history of diabetes mellitus; Z82.5 Family history of asthma and other chronic lower respiratory diseases; Z82.3 Family history of stroke; Z82.0 Family history of epilepsy and other diseases of the nervous system; Z82.49 Family history of ischemic heart disease and other diseases of the circulatory system
CPT/HCPCS: 36415; 43239; 70450; 74018; 74176; 80048; 80053; 80076; 80305; 81001; 81025; 82550; 82948; 83036; 83690; 83735; 83874; 84484; 85025; 85610; 86677; 93005; G0378; J1200; J1364; J1630; J1650; J1815; J1885; J2270; J2405; J2704; J2765; J3475; J3480; J3490; J7030; Q9963

== ENCOUNTER 2019-09-13 16:19 | Emergency (ER) | payer MEDICARE ==
[2019-09-13] MEDS ORDERED: SODIUM CHLORIDE 0.9% 1000ML 1,000 ML IV ONE ×2 (16:51→17:55)
[2019-09-13] MEDS ORDERED: KETOROLAC TROMETHAMINE 30MG/ML ONE (16:51)
[2019-09-13 16:57] LABS: APPEARANCE,URINE CLEAR (CLEAR); BILIRUBIN,URINE SMALL (NEGATIVE); COLOR,URINE YELLOW (YELLOW); GLUCOSE, URINE (UA) 500 mg/dL (NEGATIVE); KETONES,URINE >=80 mg/dL (NEGATIVE); LEUKOCYTE ESTERASE ,URINE NEGATIVE (NEGATIVE); NITRATE,URINE NEGATIVE (NEGATIVE); OCCULT BLOOD,URINE NEGATIVE (NEGATIVE); PH,URINE 6.5 (5.0-8.0); PROTEIN,URINE 100 mg/dL (NEGATIVE)
[2019-09-13] MEDS ORDERED: ONDANSETRON HCL 4 MG/2 ML VIAL ONE (17:03)
[2019-09-13 17:06] LABS: AMPHET/METH SCREEN,URINE NEGATIVE (NEGATIVE); BARBITURATE SCREEN, URINE NEGATIVE (NEGATIVE); BENZODIAZEPINES SCREEN,URINE NEGATIVE (NEGATIVE); CANNABINOID SCREEN,URINE POSITIVE (NEGATIVE); COCAINE SCREEN,URINE POSITIVE (NEGATIVE); HCG,QUAL RESULT NEGATIVE (NEGATIVE); OPIATE SCREEN,URINE NEGATIVE (NEGATIVE); PHENCYCLIDINE SCREEN,URINE NEGATIVE (NEGATIVE)
[2019-09-13 17:07] LABS: BACTERIA,URINE Rare /HPF (None Seen); RBC,URINE 0-1 /HPF (0-1); SQUAMOUS EPITHELIAL CELL,UR Few /HPF (0-2); WBC,URINE 0-1 /HPF (0-1)
[2019-09-13 17:08] LABS: MUCUS,URINE Few LPF (None Seen)
[2019-09-13 17:15] LABS: BASOPHILS % (AUTO) 0.4 % (0.0-5.0); EOSINOPHILS % (AUTO) 0.5 % (0.0-8.0); HEMATOCRIT 40.5 % (36-48); LYMPHOCYTES % (AUTO) 10.1 % (21.0-51.0); MEAN CORPUSCULAR HEMOGLOBIN 27.4 pg (27.0-33.0); MEAN CORPUSCULAR HGB CONC 34.3 g/dL (32.0-36.0); MEAN CORPUSCULAR VOLUME 79.9 fL (79-99); NEUTROPHILS % (AUTO) 79.6 % (40.0-77.0); PLATELET COUNT (AUTO) 394 K/uL (130-400); RED BLOOD CELL COUNT(AUTO) 5.07 MIL/uL (4.00-5.50); RED CELL DISTRIBUTION WIDTH 13.1 % (11.0-15.5); WHITE BLOOD COUNT (AUTO) 16.8 K/uL (4.8-10.8)
[2019-09-13 17:29] LABS: INR 0.94 (0.85-1.15); PARTIAL THROMBOPLASTIN TIME 22.2 SEC (26.3-35.5); PROTHROMBIN TIME 10.2 SEC (9.6-11.6)
[2019-09-13 17:41] LABS: CREATININE 0.8 mg/dL (0.5-1.5); POTASSIUM 3.1 mmol/L (3.5-5.1)
[2019-09-13 17:45] LABS: ALBUMIN 3.9 g/dL (3.5-5.0); BILIRUBIN,TOTAL 1.3 mg/dL (0.2-1.0); TOTAL PROTEIN, SERUM 7.4 g/dL (6.0-8.3)
[2019-09-13] MEDS ORDERED: LIDOCAINE HCL 2% VISCOUS 15 ML UDCUP ONE (17:55)
[2019-09-13] MEDS ORDERED: MAG HYDROX/AL HYDROX/SIMETH ES 30 ML SUSP UDCUP ONE (17:55)
[2019-09-13] MEDS ORDERED: HALOPERIDOL LACTATE 5 MG/ML VIAL ONE (17:55)
[2019-09-13] MEDS ORDERED: POTASSIUM CHLORIDE 10% ELIXIR 20 MEQ/15 ML UDCUP ONE (18:25)
== END 2019-09-13 18:57 | disposition home or self-care (01) ==
LOC: EDH 16:19
DX: F14.10 Cocaine abuse, uncomplicated (principal); F12.10 Cannabis abuse, uncomplicated; G43.A0 Cyclical vomiting, in migraine, not intractable; E87.6 Hypokalemia; E11.9 Type 2 diabetes mellitus without complications; Z90.49 Acquired absence of other specified parts of digestive tract; Z98.890 Other specified postprocedural states; Z72.0 Tobacco use
CPT/HCPCS: 36415; 71045; 80053; 80305; 81001; 81025; 82948; 83605; 83690; 84484; 85025; 85610; 85730; 87804 ×2; 96361; 96374; 96375; 99284; J1630; J1885; J2405; J7030 ×2

== ENCOUNTER 2020-10-25 12:12 | Emergency (ER) | payer MEDICARE ==
[2020-10-25] MEDS ORDERED: ACETAMINOPHEN-CODEINE 300/30MG TAB ONE ×2 (12:34→12:39)
[2020-10-25] MEDS ORDERED: AMOXICILLIN/POTASSIUM CLAV 875-125 TABLET PO ONE (12:34)
== END 2020-10-25 12:52 | disposition home or self-care (01) ==
LOC: EDH 12:12
DX: K02.9 Dental caries, unspecified (principal); R51.9 Headache, unspecified; K05.10 Chronic gingivitis, plaque induced; E11.9 Type 2 diabetes mellitus without complications; Z90.49 Acquired absence of other specified parts of digestive tract; Z98.890 Other specified postprocedural states; Z72.0 Tobacco use

== ENCOUNTER 2020-12-20 21:20 | Emergency (ER) | payer MEDICARE ==
[2020-12-20 21:32] VITALS: BP 137/87
[2020-12-20] MEDS ORDERED: KETOROLAC 15MG/ML VIAL (15MG/ML) IV ONE (22:30)
[2020-12-20] MEDS ORDERED: ONDANSETRON 4MG INJ IVP ONE (22:30)
[2020-12-20] MEDS ORDERED: DiphenhydrAMINE HCL 50 MG/ML VIAL IV ONE (22:30)
[2020-12-20] MEDS ORDERED: NACL 0.9% 1000ML 1,000 ML IV ONE (22:30)
[2020-12-20] MEDS ORDERED: FAMOTIDINE 20MG TAB PO ONE (22:30)
[2020-12-20 22:38] LABS: BASOPHILS % (AUTO) 0.9 % (0.0-5.0); EOSINOPHILS % (AUTO) 2.9 % (0.0-8.0); HEMATOCRIT 31.8 % (36-48); LYMPHOCYTES % (AUTO) 16.5 % (21.0-51.0); MEAN CORPUSCULAR HEMOGLOBIN 18.9 pg (27.0-33.0); MEAN CORPUSCULAR HGB CONC 28.9 g/dL (32.0-36.0); MEAN CORPUSCULAR VOLUME 65.3 fL (79-99); MONOCYTES % (AUTO) 13.3 % (3.0-13.0); PLATELET COUNT (AUTO) 533 K/uL (130-400); RED BLOOD CELL COUNT(AUTO) 4.87 MIL/uL (4.00-5.50); RED CELL DISTRIBUTION WIDTH 20.4 % (11.0-15.5); WHITE BLOOD COUNT (AUTO) 7.9 K/uL (4.8-10.8)
[2020-12-20 22:39] LABS: APPEARANCE,URINE Clear (CLEAR); BILIRUBIN,URINE Negative (NEGATIVE); COLOR,URINE Yellow (YELLOW); GLUCOSE, URINE (UA) >=1000 mg/dL (NEGATIVE); KETONES,URINE Negative (NEGATIVE); LEUKOCYTE ESTERASE ,URINE Negative (NEGATIVE); NITRATE,URINE Negative (NEGATIVE); OCCULT BLOOD,URINE Negative (NEGATIVE); PH,URINE 5.5 (5.0-8.0); PROTEIN,URINE Negative (NEGATIVE); UROBILINOGEN,URINE 0.2 mg/dL (0.2-1.0)
[2020-12-20] MEDS ORDERED: DiphenhydrAMINE HCL 50 MG/ML VIAL ONE (22:45)
[2020-12-20] MEDS ORDERED: ONDANSETRON 4MG INJ ONE (22:46)
[2020-12-20] MEDS ORDERED: KETOROLAC 15MG/ML VIAL (15MG/ML) ONE (22:46)
[2020-12-20] MEDS ORDERED: FAMOTIDINE 20MG VIAL IV ONE (22:46)
[2020-12-20 22:49] LABS: BACTERIA,URINE Few /HPF (None Seen); MUCUS,URINE Rare LPF (None Seen); RBC,URINE None Seen /HPF (0-1); SQUAMOUS EPITHELIAL CELL,UR Few /HPF (0-2); WBC,URINE 0-1 /HPF (0-1); YEAST,URINE BUDDING Few /HPF (None Seen)
[2020-12-20 22:56] LABS: ALBUMIN 3.3 g/dL (3.5-5.0); BILIRUBIN,TOTAL 0.3 mg/dL (0.2-1.0); CREATININE 0.8 mg/dL (0.5-1.5); POTASSIUM 4.5 mmol/L (3.5-5.1); TOTAL PROTEIN, SERUM 7.3 g/dL (6.0-8.3)
[2020-12-21] MEDS ORDERED: IOHEXOL 350 MG/ML 100ML INFUS..BTL IV ONE (00:08)
[2020-12-21] MEDS ORDERED: TRAMADOL /APAP 37.5MG/325MG TAB PO ONE (00:15)
[2020-12-21] MEDS ORDERED: INSULIN HUMULIN R 100 UNIT/ML 3ML SQ ONE (00:15)
[2020-12-21 00:36] VITALS: BP 135/89
[2020-12-21] MEDS ORDERED: IBUP-1493 PO (02:54)
[2020-12-21] MEDS ORDERED: FAMO-136 PO (02:54)
[2020-12-21 03:06] VITALS: BP 130/53
== END 2020-12-21 03:44 | disposition home or self-care (01) ==
LOC: EDH 21:20
DX: E11.9 Type 2 diabetes mellitus without complications (principal); D25.9 Leiomyoma of uterus, unspecified; R11.2 Nausea with vomiting, unspecified; K21.9 Gastro-esophageal reflux disease without esophagitis; Z90.49 Acquired absence of other specified parts of digestive tract; Z79.4 Long term (current) use of insulin; Z79.899 Other long term (current) drug therapy
CPT/HCPCS: 36415; 74177; 80053; 81001; 82948; 83690; 84484; 84702; 85025; 93005; 96361; 96374; 96375; 99285; J1200; J1815; J1885; J2405; J3490; J7030; Q9967

== ENCOUNTER 2022-02-05 03:19 | Emergency (ER) | payer MEDICARE ==
[~2022-02-05 03:19] MED LIST changes: +FAMO-136 PO; +IBUP-1493 PO
[2022-02-05 03:21] VITALS: BP 139/86
[2022-02-05] MEDS ORDERED: CIPROFLOXACIN HCL 0.2%/HYDROCORT 1% 10 ML OTIC SUSP OTIC SCH (03:30)
[2022-02-05] MEDS ORDERED: KETOROLAC 60 MG VIAL (30MG/ML) IM ONE (03:30)
[2022-02-05] MEDS ORDERED: KETO10TA2 PO (03:31)
== END 2022-02-05 03:48 | disposition home or self-care (01) ==
LOC: EDH 03:19
DX: H60.93 Unspecified otitis externa, bilateral (principal); E11.9 Type 2 diabetes mellitus without complications; K21.9 Gastro-esophageal reflux disease without esophagitis; Z79.1 Long term (current) use of non-steroidal anti-inflammatories (NSAID); Z90.49 Acquired absence of other specified parts of digestive tract
CPT/HCPCS: 99283; 96372; J1885

== ENCOUNTER 2022-02-19 19:07 | Inpatient (IN) | payer MEDICARE ==
[~2022-02-19] VITALS: Ht 149.9 cm; Wt 69.9 kg
[~2022-02-19 19:07] MED LIST changes: +KETO10TA2 PO
[2022-02-19] MEDS ORDERED: 0.9%NACL 1000ML 1,000 ML IV ONE (19:30)
[2022-02-19] MEDS ORDERED: ONDANSETRON 4MG INJ IVP ONE (19:30)
[2022-02-19] MEDS ORDERED: HYDROMORPHONE 0.5 MG SYG (0.5MG/0.5ML) IVP ONE ×2 (19:30→20:30)
[2022-02-19 19:46] LABS: BASOPHILS % (AUTO) 0.9 % (0.0-5.0); EOSINOPHILS % (AUTO) 0.9 % (0.0-8.0); HEMATOCRIT 36.4 % (36-48); LYMPHOCYTES % (AUTO) 9.5 % (21.0-51.0); MEAN CORPUSCULAR HEMOGLOBIN 27.3 pg (27.0-33.0); MEAN CORPUSCULAR HGB CONC 33.2 g/dL (32.0-36.0); MEAN CORPUSCULAR VOLUME 82.2 fL (79-99); MONOCYTES % (AUTO) 5.8 % (3.0-13.0); NEUTROPHILS % (AUTO) 82.5 % (40.0-77.0); PLATELET COUNT (AUTO) 484 K/uL (130-400); RED BLOOD CELL COUNT(AUTO) 4.43 MIL/uL (4.00-5.50); RED CELL DISTRIBUTION WIDTH 13.9 % (11.0-15.5); WHITE BLOOD COUNT (AUTO) 11.3 K/uL (4.8-10.8)
[2022-02-19 19:54] LABS: CARBON DIOXIDE 32 mmol/L (21-32); CHLORIDE 99 mmol/L (101-111); CREATININE 0.8 mg/dL (0.5-1.5); GLOMERULAR FILTR. RATE CALC 86 mL/min (>60); GLUCOSE,RANDOM 281 mg/dL (70-105); POTASSIUM 3.3 mmol/L (3.5-5.1); SODIUM SERUM 143 mmol/L (136-145); UREA NITROGEN, BLOOD 11 mg/dL (7-18)
[2022-02-19 19:58] LABS: ALANINE AMINOTRANSFERASE 17 U/L (12-78); ALBUMIN 3.7 g/dL (3.5-5.0); ASPARTATE AMINOTRANSFERASE 9 U/L (10-37); LIPASE 74 U/L (114-286); TOTAL PROTEIN, SERUM 7.4 g/dL (6.0-8.3)
[2022-02-19 20:17] LABS: CRP QUANTITATIVE < 2.00 mg/L (0.00-9.0)
[2022-02-19 20:59] LABS: ERYTHROCYTE SEDIMENTATION RATE 11 MM/HR (0-20)
[2022-02-19] MEDS ORDERED: IOHEXOL 350 MG/ML 100ML INFUS..BTL IV ONE (21:14)
[2022-02-19] MEDS ORDERED: 0.9% NACL 500ML IV.SOLN 500 ML IV ONE (23:30)
[2022-02-20] MEDS ORDERED: DEXTROSE 50%-WATER 50 ML DISP.SYRIN IV PRN
[2022-02-20] MEDS ORDERED: GLUCAGON 1MG KIT 1 MG ML IM PRN
[2022-02-20] MEDS ORDERED: ACETAMINOPHEN 325 MG TAB PO PRN ×2
[2022-02-20] MEDS ORDERED: POTASSIUM CHLORIDE 20 MEQ/100 ML BAG IV SCH
[2022-02-20] MEDS ORDERED: ONDANSETRON 4MG INJ IV PRN
[2022-02-20] MEDS ORDERED: NITROGLYCERIN 0.4 MG SL TAB SL PRN
[2022-02-20 00:36] LABS: HEMOGLOBIN A1C 8.7 % (4.0-6.0)
[2022-02-20] MEDS: LACTATED RINGERS 1000ML 1,000 ML IV SCH ×3 (01:04→20:48)
[2022-02-20] MEDS: MORPHINE 2 MG SYG IV PRN ×3 (01:05→23:04)
[2022-02-20] MEDS ORDERED: HYDROMORPHONE 0.5 MG SYG (0.5MG/0.5ML) IVP ONE (01:30)
[2022-02-20 03:22] LABS: APPEARANCE,URINE CLEAR (CLEAR); BILIRUBIN,URINE NEGATIVE (NEGATIVE); COLOR,URINE YELLOW (YELLOW); GLUCOSE, URINE (UA) 500 mg/dL (NEGATIVE); KETONES,URINE 40 mg/dL (NEGATIVE); LEUKOCYTE ESTERASE ,URINE NEGATIVE (NEGATIVE); NITRATE,URINE NEGATIVE (NEGATIVE); OCCULT BLOOD,URINE LARGE (NEGATIVE); PH,URINE 8.5 (5.0-8.0); PROTEIN,URINE 30 mg/dL (NEGATIVE); UROBILINOGEN,URINE 0.2 mg/dL (0.2-1.0)
[2022-02-20 03:29] LABS: AMPHET/METH SCREEN,URINE NEGATIVE (NEGATIVE); BARBITURATE SCREEN, URINE NEGATIVE (NEGATIVE); BENZODIAZEPINES SCREEN,URINE POSITIVE (NEGATIVE); CANNABINOID SCREEN,URINE POSITIVE (NEGATIVE); COCAINE SCREEN,URINE NEGATIVE (NEGATIVE); PHENCYCLIDINE SCREEN,URINE NEGATIVE (NEGATIVE)
[2022-02-20 03:45] LABS: BACTERIA,URINE None Seen /HPF (None Seen); SQUAMOUS EPITHELIAL CELL,UR Rare /HPF (0-2); WBC,URINE 0-1 /HPF (0-1); YEAST,URINE BUDDING None Seen /HPF (None Seen)
[2022-02-20 06:36] LABS: BASOPHILS % (AUTO) 0.5 % (0.0-5.0); HEMATOCRIT 36.3 % (36-48); LYMPHOCYTES % (AUTO) 14.7 % (21.0-51.0); MEAN CORPUSCULAR HGB CONC 32.8 g/dL (32.0-36.0); MEAN CORPUSCULAR VOLUME 82.3 fL (79-99); MONOCYTES % (AUTO) 6.5 % (3.0-13.0); NEUTROPHILS % (AUTO) 77.9 % (40.0-77.0); PLATELET COUNT (AUTO) 494 K/uL (130-400); RED BLOOD CELL COUNT(AUTO) 4.41 MIL/uL (4.00-5.50); RED CELL DISTRIBUTION WIDTH 14.1 % (11.0-15.5); WHITE BLOOD COUNT (AUTO) 12.7 K/uL (4.8-10.8)
[2022-02-20 06:49] LABS: ALBUMIN 3.5 g/dL (3.5-5.0); CREATININE 0.7 mg/dL (0.5-1.5); MAGNESIUM 1.8 mg/dL (1.80-2.40); POTASSIUM 3.7 mmol/L (3.5-5.1)
[2022-02-20] MEDS: INSULIN HUMULIN R 100 UNIT/ML 3ML SQ SCH ×4 (06:53→17:16)
[2022-02-20] MEDS: FAMOTIDINE 20MG VIAL IV SCH ×2 (09:14→20:49)
[2022-02-20] MEDS: ENOXAPARIN SODIUM 40 MG/0.4 ML SYRINGE SQ SCH (09:14)
[2022-02-20] MEDS ORDERED: HYDROMORPHONE 1 MG INJ IVP SCH (11:15)
[2022-02-20] MEDS ORDERED: METOCLOPRAMIDE 10 MG/2 ML VIAL ONE (11:19)
[2022-02-20] MEDS: METOCLOPRAMIDE 10 MG/2 ML VIAL IVP SCH ×2 (11:30→18:24)
[2022-02-20] MEDS: HYDROMORPHONE 1 MG INJ IVP PRN ×2 (14:48→18:25)
[2022-02-20 19:30] VITALS: BP 123/83
[2022-02-20] MEDS ORDERED: ALPRAZOLAM 0.5 MG TABLET ONE (23:19)
[2022-02-20] MEDS ORDERED: ALPRAZOLAM 0.5 MG TABLET PO ONE (23:30)
[2022-02-21 00:31] VITALS: BP 142/94
[2022-02-21] MEDS: HYDROMORPHONE 1 MG INJ IVP PRN ×2 (02:23→09:39)
[2022-02-21 04:37] VITALS: BP 112/73
[2022-02-21] MEDS: INSULIN HUMULIN R 100 UNIT/ML 3ML SQ SCH ×4 (06:00→18:00)
[2022-02-21] MEDS: MORPHINE 2 MG SYG IV PRN (06:35)
[2022-02-21] MEDS: METOCLOPRAMIDE 10 MG/2 ML VIAL IVP SCH ×3 (07:30→18:12)
[2022-02-21 08:00] VITALS: BP 153/80
[2022-02-21] MEDS: ENOXAPARIN SODIUM 40 MG/0.4 ML SYRINGE SQ SCH (09:00)
[2022-02-21] MEDS: FAMOTIDINE 20MG VIAL IV SCH ×2 (09:00→10:27)
[2022-02-21 12:00] VITALS: BP 115/69
[2022-02-21] MEDS: MEPERIDINE-PF 25 MG/ML SYG IVP PRN ×2 (13:31→18:12)
[2022-02-21 16:00] VITALS: BP 119/83
[2022-02-21 20:00] VITALS: BP 142/86
[2022-02-21] MEDS ORDERED: KETOROLAC 15MG/ML VIAL (15MG/ML) ONE (21:23)
[2022-02-21] MEDS: LACTATED RINGERS 1000ML 1,000 ML IV SCH (21:26)
[2022-02-21] MEDS ORDERED: KETOROLAC 15MG/ML VIAL (15MG/ML) IV ONE (21:30)
[2022-02-22] VITALS: BP 111/65
[2022-02-22] MEDS: LACTATED RINGERS 1000ML 1,000 ML IV SCH (01:05)
[2022-02-22 04:00] VITALS: BP 148/77
[2022-02-22] MEDS ORDERED: KETOROLAC 15MG/ML VIAL (15MG/ML) IV ONE (04:30)
[2022-02-22] MEDS: MEPERIDINE-PF 25 MG/ML SYG IVP PRN (05:26)
[2022-02-22] MEDS: INSULIN HUMULIN R 100 UNIT/ML 3ML SQ SCH ×3 (06:00→11:33)
[2022-02-22] MEDS: METOCLOPRAMIDE 10 MG/2 ML VIAL IVP SCH ×2 (06:01→11:30)
[2022-02-22 06:15] LABS: BASOPHILS % (AUTO) 1.1 % (0.0-5.0); EOSINOPHILS % (AUTO) 1.8 % (0.0-8.0); HEMATOCRIT 31.7 % (36-48); LYMPHOCYTES % (AUTO) 26.2 % (21.0-51.0); MEAN CORPUSCULAR HGB CONC 32.5 g/dL (32.0-36.0); MEAN CORPUSCULAR VOLUME 83.2 fL (79-99); MONOCYTES % (AUTO) 12.6 % (3.0-13.0); PLATELET COUNT (AUTO) 399 K/uL (130-400); RED BLOOD CELL COUNT(AUTO) 3.81 MIL/uL (4.00-5.50); RED CELL DISTRIBUTION WIDTH 13.9 % (11.0-15.5); WHITE BLOOD COUNT (AUTO) 6.6 K/uL (4.8-10.8)
[2022-02-22] MEDS ORDERED: MORPHINE 2 MG SYG ONE (06:17)
[2022-02-22 06:29] LABS: ALBUMIN 3.1 g/dL (3.5-5.0); CREATININE 0.6 mg/dL (0.5-1.5); POTASSIUM 3.6 mmol/L (3.5-5.1); TOTAL PROTEIN, SERUM 5.9 g/dL (6.0-8.3)
[2022-02-22] MEDS ORDERED: MORPHINE 2 MG SYG IVP SCH (06:30)
[2022-02-22 08:00] VITALS: BP 128/81
[2022-02-22] MEDS ORDERED: 0.9%NACL 1000ML 1,000 ML IV SCH (08:30)
[2022-02-22] MEDS: PANTOPRAZOLE 40 MG/VIAL IVP SCH ×2 (08:58→09:00)
[2022-02-22] MEDS: ENOXAPARIN SODIUM 40 MG/0.4 ML SYRINGE SQ SCH ×2 (08:59→09:00)
== END 2022-02-22 11:40 | disposition left against medical advice (07) | DRG 392 ==
LOC: EDH 19:07 → EDHIP 02-20 → OBSVTOIN 02-20 → 4BH 02-20 20:10 → 4DH 02-21 18:26
PROVIDERS: ADMIT Internal Medicine; ATTEND Internal Medicine
DX: K59.00 Constipation, unspecified (principal); K57.30 Diverticulosis of large intestine without perforation or abscess without bleeding; E11.43 Type 2 diabetes mellitus with diabetic autonomic (poly)neuropathy; Z20.822 Contact with and (suspected) exposure to COVID-19; K31.84 Gastroparesis; Z82.0 Family history of epilepsy and other diseases of the nervous system; Z82.3 Family history of stroke; Z82.49 Family history of ischemic heart disease and other diseases of the circulatory system; Z83.3 Family history of diabetes mellitus; Z87.11 Personal history of peptic ulcer disease; Z91.14 Patient's other noncompliance with medication regimen; Z91.19 Patient's noncompliance with other medical treatment and regimen
CPT/HCPCS: 36415; 74177; 78264; 80053; 80305; 81001; 82948; 83036; 83605; 83690; 83735; 84484; 84703; 85025; 85651; 86140; 87635; 93005; A9541; C9113; G0378; J1170; J1650; J1815; J1885; J2175; J2405; J2765; J3480; J3490; J7030; J7040; J7120; Q9967

== ENCOUNTER 2024-10-24 04:39 | Emergency (ER) | payer MEDICARE ==
[~2024-10-24] VITALS: Ht 149.9 cm; Wt 83.9 kg
[2024-10-24] MEDS: ketOROlac 30MG VIAL (30MG/ML) IVP STA (05:13)
--- NOTE | 2024-10-24 05:13 | ERN ---
General Chief Complaint: Abdominal Pain Stated Complaint: UPPER ABDOMINAL PAIN ONSET THURSDAY Time Seen by MD: 04:55 Source: patient History of Present Illness Initial Comments Patient lying on the hospital gurney on her stomach kicking her heels and eboni nding her fists into the bed like she is having a temper tantrum. She is complaining of abdominal pain for the last 48 hours stating that she tried to stay out of the hospital and manage it on her own but was unable to. None of the pain medications she tried worked. In addition to the diffuse abdominal pain she is complaining of nausea and vomiting and diarrhea that is nonstop. She also states that she has been urinating nonstop. Past medical history includes multiple admissions for constipation and abdominal pain and type 2 diabetes. Timing/Duration: 24 hours, getting worse Severity: moderate Allergies: Coded Allergies: No Known Drug Allergies (Verified Allergy, 09/04/12) Home Meds Active Scripts Ketorolac Tromethamine (Ketorolac Tromethamine) 10 Mg Tablet, 10 MG PO QID, #15 TAB Prov:BHAVANI HENDRICKS MD 02/05/22 Ibuprofen (Motrin/Advil) 800 Mg Tab, 800 MG PO Q6HPRN PRN for PAIN LEVEL 6 TO 10, #12 TAB Prov:AMBERLY SAEED MD 12/21/20 Famotidine (Pepcid) 20 Mg Tablet, 20 MG PO q12 for 14 Days, #28 TAB Prov:AMBERLY SAEED MD 12/21/20 Insulin Glargine,Hum.rec.anlog (Lantus Solostar) 100 Unit/1 Ml Insuln.pen, 20 UNIT SQ HS for 30 Days, #30 SYRINGE Prov:ZAIN TATUM Jr., MD 08/27/18 Fluconazole (Diflucan) 100 Mg Tablet, 100 MG PO DAILY for 7 Days, #7 TAB 0 Refills Prov:KEATON HAYES 08/26/18 Acetaminophen with Codeine (Tylenol with Codeine #3) 1 Tab Tab, 1 TAB PO BID for 7 Days, #14 TAB 0 Refills Prov:KEATON HAYES 08/26/18 Sucralfate (Carafate Susp) 1 Gm/10 Ml Susp, 0.1 GM PO QID for 30 Days, #250 ML 0 Refills Prov:KEATON HAYES [facility] 08/26/18 Pantoprazole Sodium (Protonix) 40 Mg Tablet.dr, 40 MG PO BID for 30 Days, #60 TAB 0 Refills Prov:KEATON HAYES [facility] 08/26/18 Reported Medications Metformin HCl (Metformin HCl) 1,000 Mg Tablet, 1000 MG PO BIDMEALS, TAB 08/24/18 Past Medical History Past Medical History: Diabetes-Type II, Endometriosis, GERD Past Surgical History: Appendectomy, Cholecystectomy Social History Social History: Negative, Lives with family Female( History) History: Not Applicable Constitutional: (-) chills, (-) diaphoresis, (-) fever, (-) malaise, (-) weakness, (-) other documentation EENTM: (-) eye pain, (-) blurred vision, (-) tearing, (-) double vision, (-) ear pain, (-) ear discharge, (-) nose pain, (-) nose congestion, (-) throat pa in, (-) Throat swelling, (-) mouth pain, (-) tooth pain, (-) mouth swelling, (-) other documentation Respiratory: (-) cough, (-) orthopnea, (-) short of breath, (-) stridor, (-) wheezing, (-) other documentation Cardiovascular: (-) chest pain, (-) edema, (-) palpitations, (-) syncope, (-) dyspnea on exertion, (-) other documentation Gastrointestinal/Abdominal: (+) nausea, (+) vomiting, (+) diarrhea, (+) abdominal pain Musculoskeletal: (-) Neck pain, (-) back pain, (-) Flank Pain, (-) joint pain, (-) joint swelling, (-) muscle pain, (-) muscle stiffness, (-) gout, (-) other documentation Skin: (-) laceration, (-) contusion, (-) abrasion, (-) abscess, (-) rash, (-) change in color, (-) change in hair, (-) change in nails, (-) diaphoresis, (-) dryness, (-) other documentation Neuro: (-) altered mental status, (-) headache, (-) syncope, (-) paralysis, (-) numbness, (-) seizure, (-) pre-existing deficit, (-) tremors, (-) weakness, (-) dizziness, (-) slurred speech, (-) vertigo, (-) other documentation Physical Exam General Appearance: (+) moderate distress Orientation: (+) alert Head/Face Trauma: No Eye: bilateral eye normal inspection, bilateral eye PERRL, bilateral eye EOMI Results Laboratory and Microbiology Lab and Micro Result Laboratory Tests Test 10/24/24 05:10 10/24/24 06:00 10/24/24 06:47 10/24/24 06:53 White Blood Count 11.8 K/uL (4.8-10.8) H Red Blood Count 4.75 MIL/uL (4.00-5.50) Hemoglobin 13.5 g/dL (12.0-16.0) Hematocrit 40.3 % (36-48) Mean Corpuscular Volume 84.8 fL (79-99) Mean Corpuscular Hemoglobin 28.4 pg (27.0-33.0) Mean Corpuscular Hemoglobin Concent 33.5 g/dL (32.0-36.0) Red Cell Distribution Width 13.5 % (11.0-15.5) Platelet Count 401 K/uL (130-400) H Mean Platelet Volume 9.4 fL (7.5-10.5) Immature Granulocyte % (Auto) 0.3 % (0-1) Neutrophils (%) (Auto) 73.3 % (40.0-77.0) Lymphocytes (%) (Auto) 16.5 % (21.0-51.0) L Monocytes (%) (Auto) 8.7 % (3.0-13.0) Eosinophils (%) (Auto) 0.5 % (0.0-8.0) Basophils (%) (Auto) 0.7 % (0.0-5.0) Neutrophils # (Auto) 8.6 K/uL (1.8-7.7) H Lymphocytes # (Auto) 1.9 K/uL (1.0-4.8) Monocytes # (Auto) 1.0 K/uL (0.1-1.0) Eosinophils # (Auto) 0.06 K/uL (0.00-0.70) Basophils # (Auto) 0.08 K/uL (0.00-0.20) Absolute Immature Granulocyte (auto 0.04 K/uL (0-1) Nucleated Red Blood Cells 0.0 % (0.0-0.19) Sodium Level 132 mmol/L (136-145) L Potassium Level 3.5 mmol/L (3.5-5.1) Chloride Level 94 mmol/L (101-111) L Carbon Dioxide Level 27 mmol/L (21-32) Blood Urea Nitrogen 16 mg/dL (7-18) Creatinine 0.9 mg/dL (0.5-1.0) Glomerular Filtration Rate Calc 83 mL/min (>90) Random Glucose 277 mg/dL (70-105) H Lactic Acid Level 3.0 mmol/L (0.8-2.5) H Total Calcium 8.8 mg/dL (8.5-10.1) Urine Color YELLOW (YELLOW) Urine Appearance CLEAR (CLEAR) Urine pH 5.5 (5.0-8.0) Urine Specific Anderson 1.027 (1.001-1.031) Urine Protein 100 mg/dL (NEGATIVE) H Urine Glucose (UA) >=1000 mg/dL (NEGATIVE) H Urine Ketones 60 mg/dL (NEGATIVE) H Urine Occult Blood NEGATIVE (NEGATIVE) Urine Nitrate NEGATIVE (NEGATIVE) Urine Bilirubin NEGATIVE mg/dL (NEGATIVE) Urine Urobilinogen 0.2 mg/dL (0.2-1.0) Urine Leukocyte Esterase NEGATIVE Sid/uL Urine RBC 0-1 /HPF (0-1) Urine WBC 0-1 /HPF (0-1) Urine Squamous Epithelial Cells Few /HPF (0-2) Urine Bacteria None Seen /HPF (None Seen) Urine HCG, Qualitative NEGATIVE (NEGATIVE) Urine Opiates Screen NEGATIVE (NEGATIVE) Urine Barbiturates Screen NEGATIVE (NEGATIVE) Urine Phencyclidine Screen NEGATIVE (NEGATIVE) Urine Amphetamines Screen NEGATIVE (NEGATIVE) Urine Benzodiazepines Screen NEGATIVE (NEGATIVE) Urine Cocaine Screen NEGATIVE (NEGATIVE) Urine Marijuana (THC) Screen POSITIVE (NEGATIVE) H Whole Blood Ketones Quantitative 0.5 mmol/L (0.0-0.6) Serum Alcohol < 3 mg/dL (0-10) Whole Blood Glucose 263 MG/DL (70-110) H Test 10/24/24 08:10 Lactic Acid Level 2.8 mmol/L (0.8-2.5) H Labs Reviewed?: Yes MDM I suspect patient's constellation of symptoms are due to either diabetic ketoacidosis or diabetes with osmotic diuresis and severe dehydration. We will also check for infectious causes of her abdominal pain. We will bolused the patient 2 L of lactated Ringer's. Patient's pain was not controlled with Toradol she stated that that is always given to her and it always makes her sweat and never works. I gave her 2 mg of Dilaudid in her pain subsided quite a bit. WBCs show mild elevation in her white count. Blood sugar is 277 I gave her 15 units of regular insulin. KUB shows no constipation and a minor stool burden with no impaction. I do not think we need to do a CT scan at this point. WENT OVER LABORATORY FINDINGS WHICH INCLUDED CANNABIS PRESENT IN HER SYSTEM. I ADVISED HER THAT CANNABIS HYPEREMESIS SYNDROME CAN CAUSE ABDOMINAL PAIN PATIENT STATES THAT SHE HAS BEEN SMOKING IN HER HER LIFE. I STILL COUNSELED HER ON AVOIDING CANNABIS ABUSE. I ALSO ADVISED HER THAT DUE TO THE ELEVATED LACTIC WHICH COULD MEAN SHE WAS DEHYDRATED HE NEEDED TO ADMIT HER FOR FURTHER EVALUATION. PATIENT REFUSED DESPITE MY MEDICAL ADVICE AND STATES THAT SHE DOES NOT WANT TO BE ADMITTED. ED Course Orders Procedure Category Date Status Time Ketorolac 60mg/2ml PHA 10/24/24 Complete (Toradol 60mg/2ml) 05:30 Abd 1vw RAD 10/24/24 Taken 05:02 Basic Metabolic Panel LAB 10/24/24 Complete 05:02 Cbc With Differential LAB 10/24/24 Complete 05:02 Lactic Acid LAB 10/24/24 Complete 05:02 Urinalysis Profile LAB 10/24/24 Complete 05:02 ,Urine Test LAB 10/24/24 Complete 05:02 Ketorolac PHA 10/24/24 Complete Tromethamine 30mg/Ml 05:08 Bedside Glucose CPOE 10/24/24 Transmitted Fingerstick 05:13 Insulin Regular, PHA 10/24/24 Complete Human 3ml (Humulin R 05:30 Lactated Ringers PHA 10/24/24 Complete 1000ml (Lactated 05:30 Lactated Ringers PHA 10/24/24 Complete 1000ml (Lactated 05:30 Ketone Blood LAB 10/24/24 Complete Quantitative 05:33 Hydromorphone 2mg PHA 10/24/24 Complete Vial (Dilaudid 2mg Inj 06:00 Drug Screen Urine LAB 10/24/24 Complete 05:54 Alcohol, Blood LAB 10/24/24 Complete 05:54 Bedside Glucose CPOE 10/24/24 Transmitted Fingerstick 07:00 Insulin Regular, PHA 10/24/24 Complete Human 3ml (Humulin R 06:54 Lactic Acid LAB 10/24/24 Complete 07:33 Current Medications Medications (Trade) Dose Ordered Sig/Joseph Route PRN Reason Start Time Stop Time Status Last Admin Dose Admin Hydromorphone HCl (DiLAUDid 2MG INJ) 2 mg ONCE ONCE IVP 10/24/24 06:00 10/24/24 06:01 DC 10/24/24 05:52 Insulin Human Regular (humuLIN R 100 UNIT/ML 3ML) 15 unit NOW STAT SQ 10/24/24 06:54 10/24/24 06:58 DC 10/24/24 07:11 Insulin Human Regular (humuLIN R 100 UNIT/ML 3ML) 15 unit ONCE STAT SQ 10/24/24 05:30 10/24/24 05:35 DC 10/24/24 05:52 Ketorolac Tromethamine (toRADol 60MG/ 2ML) 60 mg ONCE ONCE IM 10/24/24 05:30 10/24/24 05:10 DC Ketorolac Tromethamine (toRADol) 30 mg ONCE STAT IVP 10/24/24 05:08 10/24/24 05:11 DC 10/24/24 05:13 Lactated Ringer's (Lactated Ringers 1000ml) 1,000 ml BOLUS STAT IV 10/24/24 05:30 10/24/24 05:35 DC 10/24/24 05:48 Lactated Ringer's (Lactated Ringers 1000ml) 1,000 ml BOLUS STAT IV 10/24/24 05:30 10/24/24 05:35 DC 10/24/24 05:49 Vital Signs Date Time Temp Pulse Resp B/P (MAP) Pulse Ox O2 Delivery O2 Flow Rate FiO2 10/24/24 08:06 98.1 70 16 117/79 99 Room Air* 0 10/24/24 06:10 98.1 69 14 137/89 95 Room Air* 0 10/24/24 04:51 98.1 83 20 151/98 97 Room Air* 0 10/24/24 04:40 98.8 91 18 170/100 99 Room Air 0 DX & DISP Disposition: AMA Departure Impression: Primary Impression: Lactic acidosis Additional Impression: Cannabis abuse Condition: Against Medical Advice Additional Instructions: PATIENT LEFT AGAINST MEDICAL ADVICE DESPITE MY EFFORT SHE STATES THAT SHE NEEDS TO LEAVE AND TAKE CARE OF HER KIDS. Referrals: SELF,REFERRAL (PCP) Time of Disposition: 09:30 JH CALLAWAY MD Oct 24, 2024 05:13 SHADIA BERG MD Oct 24, 2024 09:30
[2024-10-24 05:18] LABS: BASOPHILS # (AUTO) 0.08 K/uL (0.00-0.20); BASOPHILS % (AUTO) 0.7 % (0.0-5.0); EOSINOPHILS # (AUTO) 0.06 K/uL (0.00-0.70); EOSINOPHILS % (AUTO) 0.5 % (0.0-8.0); HEMATOCRIT 40.3 % (36-48); IMMATURE GRANULOCYTE ABSOLUTE 0.04 K/uL (0-1); LYMPHOCYTES # (AUTO) 1.9 K/uL (1.0-4.8); LYMPHOCYTES % (AUTO) 16.5 % (21.0-51.0); MEAN CORPUSCULAR HEMOGLOBIN 28.4 pg (27.0-33.0); MEAN CORPUSCULAR HGB CONC 33.5 g/dL (32.0-36.0); MEAN CORPUSCULAR VOLUME 84.8 fL (79-99); MONOCYTES % (AUTO) 8.7 % (3.0-13.0); NEUTROPHILS # (AUTO) 8.6 K/uL (1.8-7.7); NEUTROPHILS % (AUTO) 73.3 % (40.0-77.0); PLATELET COUNT (AUTO) 401 K/uL (130-400); RED BLOOD CELL COUNT(AUTO) 4.75 MIL/uL (4.00-5.50); RED CELL DISTRIBUTION WIDTH 13.5 % (11.0-15.5); WHITE BLOOD COUNT (AUTO) 11.8 K/uL (4.8-10.8)
[2024-10-24 05:29] LABS: CREATININE 0.9 mg/dL (0.5-1.0); POTASSIUM 3.5 mmol/L (3.5-5.1)
[2024-10-24] MEDS ORDERED: ketOROlac 60 MG VIAL (30MG/ML) IM ONE (05:30)
--- NOTE | 2024-10-24 05:39 | NUR ---
PT FOUND TO BE ROLLING AROUND ON ER STRETCHER, KICKING HER LEGS, POUNDING HER FISTS ON THE BED, SCREAMING REPEATEDLY. WHEN ATTEMPTING TO EXPLAIN TO THE PATIENT THAT THE DOCTOR ORDERED IV FLUIDS SHE STATED "I DON'T FUCKING CARE, ALL YOU DO IS LEAVE ME HERE IN PAIN!" WHEN ATTEMPTING TO REDIRECT THE PATIENT, PATIENT STATED "I'M ABOUT TO RIP THIS SHIT OUT!" REFERENCING TO THE IV ADMINISTERING THE IV FLUIDS DR. CALLAWAY ORDERED. WHEN ATTEMPTING TO REDIRECT THE PATIENT AGAIN REGARDING NOT SELF REMOVING THE IV, PATIENT SCREAMED "I DON'T FUCKING CARE! GET OUT OF MY ROOM!" ATTEMPTS TO REDIRECT PATIENT REGARDING FOUL LANGUAGE AND RESPECT FOR PATIENT AND STAFF UNSUCCESSFUL. PATIENT SCREAMED "GET OUT, I DONT GIVE A FUCK ABOUT THE OTHER PATIENTS! YOU'RE A FUCKING BITCH!" MADE AWARE.
[2024-10-24] MEDS: LACTATED RINGERS 1000ML IV STA ×2 (05:48→05:49)
[2024-10-24] MEDS: INSULIN humuLIN R 100 UNIT/ML 3ML SQ STA ×2 (05:52→07:11)
[2024-10-24] MEDS: hydroMORPHone 2 MG VIAL (2MG/ML) IVP ONE (05:52)
[2024-10-24 06:28] LABS: AMPHET/METH SCREEN,URINE NEGATIVE (NEGATIVE); BARBITURATE SCREEN, URINE NEGATIVE (NEGATIVE); BENZODIAZEPINES SCREEN,URINE NEGATIVE (NEGATIVE); CANNABINOID SCREEN,URINE POSITIVE (NEGATIVE); COCAINE SCREEN,URINE NEGATIVE (NEGATIVE); OPIATE SCREEN,URINE NEGATIVE (NEGATIVE); PHENCYCLIDINE SCREEN,URINE NEGATIVE (NEGATIVE)
[2024-10-24 06:34] LABS: HCG,QUALITATIVE URINE NEGATIVE (NEGATIVE)
[2024-10-24 06:39] LABS: APPEARANCE,URINE CLEAR (CLEAR); BILIRUBIN,URINE NEGATIVE (NEGATIVE); COLOR,URINE YELLOW (YELLOW); GLUCOSE, URINE (UA) >=1000 mg/dL (NEGATIVE); KETONES,URINE 60 mg/dL (NEGATIVE); LEUKOCYTE ESTERASE ,URINE NEGATIVE Leu/uL (NEGATIVE); NITRATE,URINE NEGATIVE (NEGATIVE); OCCULT BLOOD,URINE NEGATIVE (NEGATIVE); PH,URINE 5.5 (5.0-8.0); PROTEIN,URINE 100 mg/dL (NEGATIVE); UROBILINOGEN,URINE 0.2 mg/dL (0.2-1.0)
[2024-10-24 06:49] LABS: ADD UA MICROSCOPIC YES; BACTERIA,URINE None Seen /HPF (None Seen); RBC,URINE 0-1 /HPF (0-1); SQUAMOUS EPITHELIAL CELL,UR Few /HPF (0-2); WBC,URINE 0-1 /HPF (0-1)
[2024-10-24 08:06] VITALS: BP 117/79; PULSE 70; RESP 16; TEMP 98; O2SAT 99
--- NOTE | 2024-10-24 09:00 | NUR ---
PATIENT [id number] STATES SHE WOULD LIKE TO LEAVE AMA IF SHES NOT GOING TO GET TAKEN CARE OF. PATIENT ADVISED THAT PLAN WAS FOR ADMISSION. PATIENT EDUCATION PROVIDED ON PLANNED INTERVENTIONS. PATIENT STATED " I NEVER HAVE A PROBLEM IN [place], AND HERE YOU GUYS DON'T WANT TO TAKE CARE OF ME". PATIENT EDUCATION PROVIDED ON INTERVENTIONS PROVIDED, AND WAS ASKED IF THERES ANYTHING ADDITIONAL SHE NEEDS. PATIENT STATED SHE WOULD JUST LIKE TO LEAVE. AMA PAPERWORK SIGNED BY PATIENT.
--- NOTE | 2024-10-24 10:54 | HMCIMG ---
ABD 1VW HISTORY: Dominant pain COMPARISON: None FINDINGS: A frontal projection of the abdomen was obtained. A nonspecific bowel gas pattern is seen. Fecal material is seen in the colon. IMPRESSION: 1. A nonspecific bowel gas pattern is seen.
== END 2024-10-24 11:05 | disposition left against medical advice (07) ==
LOC: EDH 04:39
DX: E87.20 Acidosis, unspecified (principal); F12.10 Cannabis abuse, uncomplicated; E11.9 Type 2 diabetes mellitus without complications; K21.9 Gastro-esophageal reflux disease without esophagitis; Z79.899 Other long term (current) drug therapy; Z90.49 Acquired absence of other specified parts of digestive tract
CPT/HCPCS: 99284; 96374; 96375; 80048; 80305; 85025; 82948; 83605 ×2; 82010; 81025; 36415; 74018; 81001; J1815 ×2; J1885; J1171; J7120 ×2; 96372